=== PATIENT | male | born 1980 | race Caucasian/White ===

== ENCOUNTER 2017-12-20 12:50 | Emergency (ER) | payer BC, SELFPAY ==
[2017-12-20] VITALS (15 sets, daily range): BP systolic 118–131; BP diastolic 55–84; PULSE 50–76; RESP 7–21; TEMP 37; O2SAT 95–100
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
== END 2017-12-20 14:31 | disposition home or self-care (01) ==
PROVIDERS: Emergency Provider Emergency Medicine
DX: S09.90XA Unspecified injury of head, initial encounter (principal); S16.1XXA Strain of muscle, fascia and tendon at neck level, initial encounter; S09.93XA Unspecified injury of face, initial encounter; S02.5XXA Fracture of tooth (traumatic), initial encounter for closed fracture; V18.0XXA Pedal cycle driver injured in noncollision transport accident in nontraffic accident, initial encounter; Y93.55 Activity, bike riding
CPT/HCPCS: 36415; 99284; 70450; 70486; 72125